=== PATIENT | male | born 1955 | race Two or more races ===

== ENCOUNTER 2020-11-20 07:43 | Inpatient (IN) | payer MEDICAID ==
[~2020-11-20] VITALS: Ht 170.2 cm; Wt 53.0 kg
[2020-11-20] MEDS ORDERED: IOHEXOL 350 MG/ML 75 ML VIAL ONE (07:53)
[2020-11-20] MEDS ORDERED: SODIUM CHLORIDE 0.9% 0 ML ONE (07:53)
[2020-11-20] MEDS ORDERED: NiCARDipine HCL 25 MG in SODIUM CHLORIDE 0.9% 240 ML IV PRN ×2 (08:15→10:37)
[2020-11-20] MEDS ORDERED: ETOMIDATE 2 MG/ML 10 ML VIAL IVP ONE (08:15)
[2020-11-20] MEDS ORDERED: SUCCINYLCHOLINE CHLORIDE 20 MG/ML 10 ML VIAL IVP ONE (08:15)
[2020-11-20] MEDS ORDERED: LevETIRAcetam 500 MG in DEXTROSE 5%-WATER 100 ML IV ONE (08:15)
[2020-11-20 08:45] LABS: BASOPHILS % (AUTO) 0.3 % (0.0-2.0); EOSINOPHILS % (AUTO) 0 % (1.0-6.0); HEMATOCRIT 27.8 % (41-53); HEMOGLOBIN 9.2 g/dL (13.5-17.5); LYMPHOCYTES # (AUTO) 0.7 K/uL (1.0-4.8); LYMPHOCYTES % (AUTO) 7.1 % (22.0-44.0); MEAN CORPUSCULAR HEMOGLOBIN 31.4 pg (26.0-34.0); MEAN CORPUSCULAR VOLUME 95 fL (80-100); MONOCYTES # (AUTO) 0.5 K/uL (0.1-1.0); MONOCYTES % (AUTO) 4.8 % (2.0-9.0); NEUTROPHILS # (AUTO) 8.7 K/uL (1.8-7.7); PLATELET COUNT (AUTO) 217 K/uL (150-450); RED BLOOD CELL COUNT(AUTO) 2.92 MIL/uL (4.50-5.90); RED CELL DISTRIBUTION WIDTH 17.3 % (11.5-14.5)
[2020-11-20] MEDS ORDERED: CARV25 PO (08:49)
[2020-11-20] MEDS ORDERED: LANS30CA56 PO (08:49)
[2020-11-20] MEDS ORDERED: INSU100V SQ (08:49)
[2020-11-20] MEDS ORDERED: NETA2.5D3 OU (08:49)
[2020-11-20] MEDS ORDERED: CLOP75TA60 PO (08:49)
[2020-11-20] MEDS ORDERED: MELA5TAB40 PO (08:49)
[2020-11-20] MEDS ORDERED: TRAM50TA4 PO (08:49)
[2020-11-20] MEDS ORDERED: ATOR40TA28 PO (08:49)
[2020-11-20] MEDS ORDERED: NIFE60TA85 PO (08:49)
[2020-11-20] MEDS ORDERED: FERR-89 PO (08:49)
[2020-11-20] MEDS ORDERED: TAMS-13 PO (08:49)
[2020-11-20] MEDS ORDERED: MIRT-89 PO (08:49)
[2020-11-20] MEDS ORDERED: PRED5DRO25 OU (08:49)
[2020-11-20] MEDS ORDERED: ASPI-1444 PO (08:49)
[2020-11-20] MEDS ORDERED: BUME1TAB34 PO (08:49)
[2020-11-20 08:50] LABS: NEUTROPHILS % (AUTO) 87.8 % (40.0-70.0)
[2020-11-20 09:01] LABS: CALCIUM, TOTAL 8.2 mg/dL (8.8-10.5); CREATININE 4.01 mg/dL (0.60-1.30); INR 1.1 (0.9-1.1); POTASSIUM 5.5 mmol/L (3.5-5.1); PROTHROMBIN TIME 11.9 SEC (9.4-11.6)
[2020-11-20 09:08] LABS: ALBUMIN 2.2 g/dL (3.4-5.0); BILIRUBIN,TOTAL 0.4 mg/dL (0.1-1.0); TOTAL PROTEIN, SERUM 7.5 g/dL (6.4-8.2)
[2020-11-20] MEDS ORDERED: AZITHROMYCIN 500 MG/NS 250 ML IV ONE (09:30)
[2020-11-20] MEDS ORDERED: CefTRIAXone 1 GM/DEXTROSE 50 ML IV ONE (09:30)
[2020-11-20 09:46] LABS: BILIRUBIN,URINE NEGATIVE (NEGATIVE); GLUCOSE, URINE (UA) 250 mg/dL (NEGATIVE); KETONES,URINE NEGATIVE (NEGATIVE); LEUKOCYTE ESTERASE ,URINE SMALL (NEGATIVE); NITRATE,URINE NEGATIVE (NEGATIVE); OCCULT BLOOD,URINE MODERATE (NEGATIVE); PH,URINE 5.5 (5.0-8.0); PROTEIN,URINE SEE CONFIRM (NEGATIVE); UROBILINOGEN,URINE 0.2 mg/dL (<=1.0)
[2020-11-20 09:47] LABS: APPEARANCE,URINE SLIGHTLY CLOUDY (CLEAR)
[2020-11-20 09:51] LABS: AMPHET/METH SCREEN,URINE NEGATIVE (NEGATIVE); BARBITURATE SCREEN, URINE NEGATIVE (NEGATIVE); BENZODIAZEPINES SCREEN,URINE NEGATIVE (NEGATIVE); CANNABINOID SCREEN,URINE NEGATIVE (NEGATIVE); COCAINE SCREEN,URINE NEGATIVE (NEGATIVE); METHADONE SCREEN, URINE NEGATIVE (NEGATIVE); OPIATE SCREEN,URINE NEGATIVE (NEGATIVE)
[2020-11-20 09:52] LABS: PHENCYCLIDINE SCREEN,URINE NEGATIVE (NEGATIVE)
[2020-11-20 10:08] LABS: ABG A-A DIFF O2 461.5 mmHg (10-20.0); ABG BASE EXCESS -7.3 mmol/L (-2.0-3.0); ABG CARBOXYHEMOGLOBIN 0.3 % (0.0-1.5); ABG HCO3 19.4 mmol/L (22.0-26.0); ABG METHEMOGLOBIN 0.2 % (0.0-1.5); ABG OXYGEN CONTENT 14.2 mL/dL (15.0-23.0); ABG OXYGEN SATURATION 98.8 % (95.0-98.0); ABG OXYHEMOGLOBIN 98.3 % (94.0-100.0); ABG PCO2 26 mmHg (35-45); ABG PH 7.435 (7.35-7.450); ABG TOTAL HEMOGLOBIN 9.9 G/dL (12.0-18.0); O2 DEVICE,BLOOD GAS VENTILATOR (ROOM AIR); PO2, ARTERIAL BG 225.7 mmHg (79.0-87.0); SITE, BLOOD GAS RT BRACHIAL; SOURCE, BLOOD GAS ARTERIAL; TEMPERATURE, FAHRENHEIT, BG 98.6 FAHREN (96.0-98.6)
[2020-11-20 10:09] LABS: PEEP,BG 5 cm H2O; SPONTANEOUS VT, BG 550 ml; VT, ABG 400 ml
[2020-11-20 10:33] LABS: BACTERIA,URINE None Seen /HPF (None Seen); SULFOSALICYLIC ACID,URINE 3+ (Negative); WBC,URINE 0-2 /HPF (0-5)
[2020-11-20] MEDS ORDERED: NETARSUDIL OU SCH (10:45)
[2020-11-20] MEDS ORDERED: [UNRECOGNIZED DRUG - OTHER] OU SCH (10:45)
[2020-11-20] MEDS ORDERED: LATANOPROST OU SCH (10:45)
[2020-11-20] MEDS ORDERED: BISACODYL 10 MG RECTAL RECTAL SUPPOSITORY PR PRN (11:00)
[2020-11-20] MEDS ORDERED: ALBUTEROL SULFATE 2.5 MG/0.5 ML NEB SOLUTION NEB PRN (11:00)
[2020-11-20] MEDS ORDERED: 0.9% SODIUM CHLORIDE 10 ML SYRINGE IVP PRN (11:00)
[2020-11-20] MEDS ORDERED: ONDANSETRON HCL 4 MG/2 ML VIAL IVP PRN (11:00)
[2020-11-20] MEDS ORDERED: INSULIN LISPRO 100 UNITS/ML SQ PRN (11:00)
[2020-11-20] MEDS ORDERED: DEXTROSE 50%-WATER 25 GM/50 ML SYRINGE IVP PRN (11:00)
[2020-11-20] MEDS ORDERED: IPRATROPIUM BROMIDE 0.5 MG/2.5 ML NEB SOLUTION NEB PRN (11:00)
[2020-11-20] MEDS ORDERED: ACETAMINOPHEN 325 MG TABLET NG PRN (11:00)
[2020-11-20 11:02] LABS: COVID AG,FIA SOURCE NASOPHARYNGEAL
[2020-11-20] MEDS: PANTOPRAZOLE SODIUM 40 MG/VIAL IVP SCH (11:17)
[2020-11-20] MEDS: MetroNIDAZOLE 500 MG/NACL 100 ML IV SCH ×2 (12:06→20:12)
[2020-11-20] MEDS: SODIUM CHLORIDE 3% 500 ML IV SCH (12:27)
[2020-11-20] MEDS ORDERED: PrednisoLONE ACETATE 1% 5 ML OPHTHALMIC SUSPENSION OU SCH (13:00)
[2020-11-20] MEDS ORDERED: [UNRECOGNIZED DRUG - OTHER] OU SCH ×2 (13:00)
[2020-11-20] MEDS: ALBUTEROL SULFATE 2.5 MG/0.5 ML NEB SOLUTION NEB SCH ×2 (15:26→21:30)
[2020-11-20] MEDS: IPRATROPIUM BROMIDE 0.5 MG/2.5 ML NEB SOLUTION NEB SCH ×2 (15:26→21:31)
[2020-11-20] MEDS: LevETIRAcetam 500 MG in DEXTROSE 5%-WATER 100 ML IV SCH (21:00)
[2020-11-20] MEDS: DOXYCYCLINE HYCLATE 100 MG in DEXTROSE 5%-WATER 100 ML IV SCH (21:30)
[2020-11-21] MEDS: ALBUTEROL SULFATE 2.5 MG/0.5 ML NEB SOLUTION NEB SCH ×2 (03:13→07:45)
[2020-11-21] MEDS: IPRATROPIUM BROMIDE 0.5 MG/2.5 ML NEB SOLUTION NEB SCH ×2 (03:13→07:45)
[2020-11-21] MEDS: MetroNIDAZOLE 500 MG/NACL 100 ML IV SCH ×2 (03:50→11:28)
[2020-11-21] MEDS: SODIUM CHLORIDE 3% 500 ML IV SCH (04:10)
[2020-11-21 04:37] LABS: BASOPHILS % (AUTO) 0.5 % (0.0-2.0); EOSINOPHILS % (AUTO) 1.5 % (1.0-6.0); LYMPHOCYTES # (AUTO) 1.2 K/uL (1.0-4.8); LYMPHOCYTES % (AUTO) 22.2 % (22.0-44.0); MEAN CORPUSCULAR HEMOGLOBIN 30.9 pg (26.0-34.0); MEAN CORPUSCULAR HGB CONC 32.3 G/dL (31.0-37.0); MEAN CORPUSCULAR VOLUME 96 fL (80-100); MONOCYTES # (AUTO) 0.3 K/uL (0.1-1.0); MONOCYTES % (AUTO) 6.1 % (2.0-9.0); NEUTROPHILS # (AUTO) 3.9 K/uL (1.8-7.7); NEUTROPHILS % (AUTO) 69.7 % (40.0-70.0); PLATELET COUNT (AUTO) 127 K/uL (150-450); RED BLOOD CELL COUNT(AUTO) 1.93 MIL/uL (4.50-5.90); RED CELL DISTRIBUTION WIDTH 17.3 % (11.5-14.5)
[2020-11-21 04:53] LABS: ALBUMIN 1.4 g/dL (3.4-5.0); BILIRUBIN,TOTAL 0.2 mg/dL (0.1-1.0); CALCIUM, TOTAL 7.7 mg/dL (8.8-10.5); CREATININE 4.23 mg/dL (0.60-1.30); MAGNESIUM 1.8 mg/dL (1.80-2.40); PHOSPHORUS 6.4 mg/dL (2.5-4.9); POTASSIUM 5.2 mmol/L (3.5-5.1); TOTAL PROTEIN, SERUM 5.1 g/dL (6.4-8.2)
[2020-11-21 05:02] LABS: HEMATOCRIT 18.5 % (41-53)
[2020-11-21] MEDS ORDERED: SODIUM CHLORIDE 0.9% 500 ML IV ONE (05:45)
[2020-11-21 07:03] VITALS: BP 108/65
[2020-11-21] MEDS ORDERED: TAMSULOSIN HCL 0.4 MG CAPSULE PO SCH (09:00)
[2020-11-21] MEDS: PANTOPRAZOLE SODIUM 40 MG/VIAL IVP SCH (09:26)
[2020-11-21] MEDS: LevETIRAcetam 500 MG in DEXTROSE 5%-WATER 100 ML IV SCH (09:26)
[2020-11-21] MEDS: DOXYCYCLINE HYCLATE 100 MG in DEXTROSE 5%-WATER 100 ML IV SCH (09:26)
[2020-11-21] MEDS ORDERED: NOREPINEPHRINE 4 MG/D5%-WATER 250 ML IV ONE (09:32)
[2020-11-21] MEDS ORDERED: CefTRIAXone 1 GM/DEXTROSE 50 ML IV SCH (10:00)
[2020-11-21] MEDS ORDERED: LORazepam 2 MG/ML VIAL IVP PRN (10:30)
[2020-11-21] MEDS ORDERED: MORPHINE SULFATE 100 MG/NS/PF 100 ML IV PRN (10:30)
[2020-11-21 11:55] VITALS: BP 64/35
== END 2020-11-21 12:00 | DRG 44 ==
LOC: EMS 07:44 → ICUN 10:23
PROVIDERS: ADMIT Internal Medicine; ATTEND Internal Medicine
PROC: 5A1945Z Respiratory Ventilation, 24-96 Consecutive Hours (ICD-10-PCS; principal; 2020-11-20)
PROC: 0BH17EZ Insertion of Endotracheal Airway into Trachea, Via Natural or Artificial Opening (ICD-10-PCS; 2020-11-20)
PROC: 30233N1 Transfusion of Nonautologous Red Blood Cells into Peripheral Vein, Percutaneous Approach (ICD-10-PCS; 2020-11-20)
DX: I61.9 Nontraumatic intracerebral hemorrhage, unspecified (principal); J96.00 Acute respiratory failure, unspecified whether with hypoxia or hypercapnia; J90 Pleural effusion, not elsewhere classified; E87.4 Mixed disorder of acid-base balance; D63.8 Anemia in other chronic diseases classified elsewhere; N17.9 Acute kidney failure, unspecified; J44.9 Chronic obstructive pulmonary disease, unspecified; I16.1 Hypertensive emergency; Z66 Do not resuscitate; I12.9 Hypertensive chronic kidney disease with stage 1 through stage 4 chronic kidney disease, or unspecified chronic kidney disease; N18.9 Chronic kidney disease, unspecified; E87.5 Hyperkalemia; R29.74 NIHSS score 40-42; E78.5 Hyperlipidemia, unspecified; N40.0 Benign prostatic hyperplasia without lower urinary tract symptoms; D50.9 Iron deficiency anemia, unspecified; E11.22 Type 2 diabetes mellitus with diabetic chronic kidney disease; F32.9 Major depressive disorder, single episode, unspecified; I25.10 Atherosclerotic heart disease of native coronary artery without angina pectoris; Z51.5 Encounter for palliative care; Z78.9 Other specified health status; Z79.82 Long term (current) use of aspirin; Z79.899 Other long term (current) drug therapy; Z20.822 Contact with and (suspected) exposure to COVID-19
CPT/HCPCS: 31500; 36600; 51702; 71045; 80053; 80061; 81001; 81002; 82805; 83036; 83735; 84100; 84145; 84295; 84484; 85025; 85610; 85730; 86850; 86900; 86901; 86923; 87040; 87081; 93005; 93306; 94002; 94003; 94640; 99291; C9113; G0378; J0330; J0456; J0696; J0712; J2270; J3490; J7030; J7040; J7050; J7060; P9016; Q9967; 36415-L1; 36415-TC; 70450; 70450-TC; J7613; U0003